=== PATIENT | female | born 1965 | race Caucasian/White ===

== ENCOUNTER → 2019-11-05 08:30 | Outpatient (CLI) | payer OTHER, SELFPAY ==
[2019-11-05 09:17] LABS: Add Manual Diff / Slide Review NO; Basophils Absolute Auto 0 /uL (0-100); Basophils Percent Auto 0.7 % (0-2); Eosinophils Absolute Auto 0 /uL (0-450); Eosinophils Percent Auto 0.9 % (2-4); Hematocrit 39.6 % (36-46); Hemoglobin 13.5 g/dL (12.0-16.0); Lymphocytes Absolute Auto 1600 /uL (1100-4500); Lymphocytes Percent Auto 33.1 % (25-40); Mean Corpuscular Hemoglobin 32.3 PG (26-34); Monocytes Absolute Auto 400 /uL (0-900); Monocytes Percent Auto 7.4 % (3-14); Neutrophils Absolute Auto 2900 /uL (1500-7000); Neutrophils Percent Auto 57.9 % (50-75); Platelet Count 399 X10^3/uL (150-400); Red Blood Cell Count 4.17 X10^6/uL (4.0-5.2); Red Cell Distribution Width 12.7 % (11.6-14.8); White Blood Cell Count 4.9 X10^3/uL (4.5-11.0)
[2019-11-05 09:20] LABS: Blood Urea Nitrogen 12 mg/dL (7-17); Calcium 9.7 mg/dL (8.4-10.2); Carbon Dioxide 28 mmol/L (22-32); Chloride 104 mmol/L (98-107); Cholesterol 194 mg/dL (140-199); Estimated Glomerular Filt Rate > 60.0 mL/min (>60); Glucose 104 mg/dL (70-100); HDL Cholesterol 83 mg/dL (40-60); HEMOLYSIS < 15 (0-50); LDL Cholesterol Calculated 97 mg/dL (<100); Potassium 4.1 mmol/L (3.4-5.1); Sodium 141 mmol/L (137-145); Triglycerides 69 mg/dL (35-150)
[2019-11-05 09:45] LABS: Vitamin D 25 Hydroxy (D3) 22.4 ng/mL (30.0-100.0)
== END ==
PROVIDERS: Referring Provider Family Medicine; Visit Provider Family Medicine
DX: Z13.220 Encounter for screening for lipoid disorders (principal); E55.9 Vitamin D deficiency, unspecified; G47.9 Sleep disorder, unspecified; R53.83 Other fatigue
CPT/HCPCS: 36415; 80048; 80061; 82306; 85025

== ENCOUNTER → 2019-11-28 08:03 | Outpatient (CLI) | payer OTHER, SELFPAY ==
--- NOTE | 2019-11-28 08:04 | DI.MG.S_ITS ---
BILATERAL DIGITAL SCREENING MAMMOGRAM 3D/2D WITH CAD: 11/28/2019 CLINICAL: Baseline exam. Routine screening. No prior exams were available for comparison. There are scattered fibroglandular elements in both breasts. Current study was also evaluated with a Computer Aided Detection (CAD) system. There is a possible focal asymmetry with an obscured margin in the left breast at 7 o'clock anterior depth. It appears somewhat tubular in appearance. No other significant masses, calcifications, or other findings are seen in either breast. IMPRESSION: INCOMPLETE: NEEDS ADDITIONAL IMAGING EVALUATION The possible focal asymmetry in the left breast may represent a solitary dilated duct and is indeterminate. Additional views with possible ultrasound are recommended. This exam was interpreted at Station ID: [id number]. NOTE: For mammograms, a report in lay terms will be sent to the patient. Approximately 15% of breast malignancies will not be visualized mammographically. In the management of a palpable breast mass, a negative mammogram must not discourage biopsy of a clinically suspicious lesion. Electronically Signed By: Ashvin lopez/:11/28/2019 09:13:43 letter sent: Additional Imaging Needed ACR BI-RADS Category 0: Incomplete 3340F
== END ==
PROVIDERS: PCP Family Medicine; Referring Provider Family Medicine; Visit Provider Family Medicine
DX: Z12.31 Encounter for screening mammogram for malignant neoplasm of breast (principal)
CPT/HCPCS: 77063; 77067

== ENCOUNTER → 2019-12-17 09:02 | Outpatient (CLI) | payer OTHER, SELFPAY ==
--- NOTE | 2019-12-17 | DI.US.S_ITS ---
LIMITED ULTRASOUND OF LEFT BREAST AND AXILLA: 12/17/2019 CLINICAL: Patient returns today to evaluate a density in the left breast. Comparison is made to exams dated: 11/28/2019 mammogram and 12/17/2019 mammogram - [facility]. Color flow and real-time ultrasound of the left breast 7 o'clock, retroareolar, and axilla regions were performed. [place] scale images of the real-time examination were reviewed. Patient denies nipple discharge. There is a 0.3 cm dilated solitary duct in the left breast at 7 o'clock anterior depth 1-2 cm from the nipple. This correlates with mammography findings. Color flow imaging demonstrates that there is no vascularity present. No intraductal mass demonstrated. No significant abnormalities were seen sonographically in the left axilla. IMPRESSION: PROBABLY BENIGN The 0.3 cm dilated solitary duct in the left breast likely represents duct ectasia and is probably benign. A follow-up mammogram and an ultrasound in 6 months is recommended to demonstrate stability. Exam findings and recommendation were conveyed to the patient by the [employer]. This exam was interpreted at Station ID: [id number]. Electronically Signed By: Manish Barnes M.D. slc/:12/17/2019 12:40:07 letter sent: Followup Recommended Ultrasound BI-RADS: 3 Probably benign
--- NOTE | 2019-12-17 | DI.MG.S_ITS ---
UNILATERAL LEFT DIGITAL DIAGNOSTIC MAMMOGRAM 3D/2D WITH ADDITIONAL VIEWS: 12/17/2019 CLINICAL: Additional evaluation requested from prior study. Comparison is made to exam dated: 11/28/2019 mammogram - [facility]. There are scattered fibroglandular elements in left breast. There is a possible focal asymmetry in the left breast at 7 o'clock anterior depth. This is less prominent on additional views. No other significant masses or calcifications are seen in the breast. IMPRESSION: INCOMPLETE: NEEDS ADDITIONAL IMAGING EVALUATION The possible focal asymmetry in the left breast is less prominent on additional views and is indeterminate. A targeted ultrasound is recommended and will immediately follow. This exam was interpreted at Station ID: [id number]. NOTE: For mammograms, a report in lay terms will be sent to the patient. Approximately 15% of breast malignancies will not be visualized mammographically. In the management of a palpable breast mass, a negative mammogram must not discourage biopsy of a clinically suspicious lesion. Electronically Signed By: Manish Barnes M.D. slc/:12/17/2019 10:06:24 ACR BI-RADS Category 0: Incomplete 3340F
== END ==
PROVIDERS: PCP Family Medicine; Referring Provider Family Medicine; Visit Provider Family Medicine
DX: R92.8 Other abnormal and inconclusive findings on diagnostic imaging of breast (principal); N60.42 Mammary duct ectasia of left breast
CPT/HCPCS: 76642; 77065; G0279